=== PATIENT | female | born 1975 | race Caucasian/White ===

== ENCOUNTER 2019-07-27 02:57 | Emergency (ER) | payer OTHER ==
[2019-07-27] MEDS ORDERED: Sodium Chloride 0.9% 1000 ML 1,000 ML IV STA (03:28)
[2019-07-27] MEDS ORDERED: Inapsine 5 MG/2 ML IV ONE (03:28)
[2019-07-27] MEDS ORDERED: BENADRYL 50 MG/ML IV ONE (03:28)
[2019-07-27] MEDS ORDERED: Inapsine 5 MG/2 ML ONE (03:32)
[2019-07-27] MEDS ORDERED: Sodium Chloride 0.9% 1000 ML 1,000 ML ONE (03:33)
[2019-07-27] MEDS ORDERED: BENADRYL 50 MG/ML ONE (03:33)
--- NOTE | 2019-07-27 03:39 | ERPHSYRPT ---
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 I got a steroid shot from my doctor today and it helped for a little bit. Tonight it started hurting again and won't go away." Triage Nursing Assessment: Pt presented to the ED alert et oriented GCS - 15 answering questions appropriately. Pt ambulated to the room without complications. Pt reported an ongoing headache over the past two weeks that she saw her PCP for who gave her a steroid injection. Pt reported no relief from the headache. Pt reported mild dizziness. Pt denied visual/auditory disturbances. Pt denied nasuea/vomiting. Head normocephalic. Pupils 3mm reactive to light without noted nystagmus. Oral mucosa pink/moist. Neck supple non-tender without noted lymphadenopathy. Symmetrical chest expansion. lungs clear with adequate airflow. Heart tones tachycardic/clear. Radial pulse strong billateral. Abdomen soft non-tender. No noted neurological deficits. Pt denied history of migraines or seizures. Pt reported taking 1500mg of tylenol prior to arrival. Pt denied any recent trauma. Pt did report recently finishing a z-pack prescribed by her PCP. Physician History: Patient is here for headache frontal. Patient states that she has had a headach e intermittent for 2 weeks. It is not worse or better throughout the day. She states that she has no falls or trauma. No fever or chills. No signs or symptoms of meningitis. Patient states that she has seen her nurse practitioner twice for this. She has received that steroid shot, Toradol shot, and Z-Percy. She is already been on a Z-Percy for sinusitis recently. She recently had an ablation done uterus. She has no fever or chills. No signs or symptoms of cavernous sinus thrombosis. Location: frontal headache Quality: dull, aching Radiation: none Severity: moderate Duration: 2 weeks Timing: intermittent Modifying factors/associated signs and symptoms: Treated as sinusitis already. States that she still has some frontal drainage, signs and symptoms of allergies. She has get allergy shots as well. Allergies/Adverse Reactions: codeine Allergy (Severe, Verified 07/27/19 03:03) fentanyl Allergy (Severe, Verified 07/27/19 03:03) Home Medications: Hydrocodone/APAP 5-325 Tab^^^ [Levasy 5-325 Tablet^^^] 1 tab PO Q4H 07/27/19 [History] Hx Tetanus, Diphtheria Vaccination/Date Given: Yes Hx Influenza Vaccination/Date Given: Yes Travel Risk - International Travel Have you traveled outside of the country in past 3 weeks: No - Coronavirus Screening Are you exhibiting any of the following symptoms?: No Close contact with a COVID-19 positive Pt in past 14-21 Days: No - Review of Systems Constitutional: No Fever, No Chills Eyes: No Symptoms Ears, Nose, & Throat: No Symptoms Respiratory: No Cough, No Dyspnea Cardiac: No Chest Pain, No Edema, No Syncope Abdominal/Gastrointestinal: No Abdominal Pain, No Nausea, No Vomiting, No Diarrhea Genitourinary Symptoms: No Dysuria Musculoskeletal: No Back Pain, No Neck Pain Skin: No Rash Neurological: Headache, No Dizziness, No Focal Weakness, No Sensory Changes Psychological: No Symptoms Endocrine: No Symptoms All Other Systems: Reviewed and Negative - Past Medical History Pertinent Past Medical History: Yes Cardiac History: High Cholesterol, Hypertension Endocrine Medical History: Hypothyroidism GI Medical History: GERD - Past Surgical History Past Surgical History: Yes Other Surgical History: tubal ablasion - Social History Smoking Status: Never smoker Exposure to second hand smoke: No Drug Use: none Patient Lives Alone: Yes - Female History Hx Now: No - Nursing Vital Signs Nursing Vital Signs: Initial Vital Signs Temperature 98.3 F 07/27/19 02:57 Pulse Rate 105 H 07/27/19 02:57 Respiratory Rate 16 07/27/19 02:57 Blood Pressure 139/93 07/27/19 02:57 O2 Sat by Pulse Oximetry 100 07/27/19 02:57 Pain Scale Pain Intensity 8 - Physical Exam General Appearance: no apparent distress, alert Eye Exam: eyes nml inspection, other (Patient is blind in her right eye. Therefore she has some issues with medial gaze of the right eye. However this is not new.) Ears, Nose, Throat Exam: normal ENT inspection, TMs normal, pharynx normal, moist mucous membranes Neck Exam: normal inspection, non-tender, supple, full range of motion Respiratory Exam: normal breath sounds, lungs clear, No respiratory distress Cardiovascular Exam: regular rate/rhythm, normal heart sounds, normal peripheral pulses Gastrointestinal/Abdomen Exam: soft, normal bowel sounds, No tenderness, No mass Back Exam: normal inspection, normal range of motion, No CVA tenderness, No vertebral tenderness Extremity Exam: normal inspection, normal range of motion, pelvis stable Neurologic Exam: alert, oriented x 3, cooperative, normal mood/affect, nml cerebellar function, nml station & gait, sensation nml, No motor deficits Skin Exam: normal color, warm, dry, No rash Lymphatic Exam: No adenopathy SpO2 Interpretation: normal SpO2: 100 Comments: 07/27/19 03:36 No trismus, able to fully extend neck, normal range of motion of neck without pain. Uvula is midline, no swelling of the mouth, noraml oropharynx. No exudate, no signs of meningitis, no floor of mouth swelling, no hot potato voice on exam. No buccal swelling, no gum bleeding, no signs of tooth abscess/infection. No obvious deformity, sensation intact, 2+ capillary refill, 2 point tactile discrimination intact. 5 out of 5 strength. Full range of motion without pain. Compartments are soft, nontender. Overlying skin shows no tenting, bruising, ecchymosis. Motor: There is no pronator drift of out-stretched arms. Muscle bulk and tone are normal. Strength is full bilaterally. Reflexes: Reflexes are 2+ and symmetric at the biceps, triceps, knees, and ankles. Plantar responses are flexor. Sensory: Light touch sense are intact in bilateral upper and lower extremities. There is no sign of neglect. Coordination: Rapid alternating movements are intact. There is no dysmetria on [id number] and [id number]. There are no abnormal or extraneous movements. Romberg is absent. Gait/Stance: Posture is normal. Gait is steady with normal steps, base, arm swing, and turning. Heel and toe walking are normal. Tandem gait is normal. Ordered Tests: Active Orders 24 hr Category Date Time Status IV Insertion STAT Care 07/27/19 03:28 Active ACETAMINOPHEN Stat Lab 07/27/19 04:00 Completed CBC W DIFF Stat Lab 07/27/19 04:00 Completed CMP Stat Lab 07/27/19 04:00 Completed Manual Differential NC Stat Lab 07/27/19 04:00 Completed Medication Summary Discontinued Medications Generic Name Dose Route Start Last Admin Trade Name Freq PRN Reason Stop Dose Admin Diphenhydramine HCl 25 mg 07/27/19 03:28 07/27/19 03:34 Benadryl 50 Mg/Ml IV 07/27/19 03:29 25 mg STAT ONE Administration Diphenhydramine HCl Confirm 07/27/19 03:33 Benadryl 50 Mg/Ml Administered 07/27/19 03:34 Dose 50 mg .ROUTE .STK-MED ONE Droperidol 1.25 mg 07/27/19 03:28 07/27/19 03:39 Inapsine 5 Mg/2 Ml IV 07/27/19 03:29 1.25 mg STAT ONE Administration Droperidol Confirm 07/27/19 03:32 Inapsine 5 Mg/2 Ml Administered 07/27/19 03:33 Dose 5 mg .ROUTE .STK-MED ONE Sodium Chloride 1,000 mls @ 999 mls/hr 07/27/19 03:28 07/27/19 03:35 Sodium Chloride 0.9% 1000 Ml IV 07/27/19 04:28 999 mls/hr .Q1H1M STA Administration Sodium Chloride Confirm 07/27/19 03:33 Sodium Chloride 0.9% 1000 Ml Administered 07/27/19 03:34 Dose 1,000 mls @ ud .ROUTE .STK-MED ONE Lab/Rad Data: Laboratory Result Diagrams 07/27/19 04:00 07/27/19 04:00 Laboratory Results 07/27/19 07/27/19 07/27/19 Range/Units 04:00 04:00 04:00 WBC 14.6 H (4.0-10.5) K/mm3 RBC 3.71 L (4.1-5.4) M/mm3 Hgb 9.8 L (12.0-16.0) gm/dl Hct 30.7 L (35-47) % MCV 82.7 (78-100) fl MCH 26.4 (26-32) pg MCHC 31.9 L (32-36) g/dl RDW 13.4 (11.5-14.0) % Plt Count 476 H (150-450) K/mm3 MPV 8.4 (7.5-11.0) fl Sodium 138 (137-145) mmol/L Potassium 3.5 (3.5-5.1) mmol/L Chloride 106 (98-107) mmol/L Carbon Dioxide 25 (22-30) mmol/L Anion Gap 10.5 (5-15) MEQ/L BUN 8 (7-17) mg/dL Creatinine 0.50 L (0.52-1.04) mg/dL Estimated GFR > 60.0 ML/MIN Glucose 159 H (74-106) mg/dL Calcium 8.4 (8.4-10.2) mg/dL Total Bilirubin 0.20 (0.2-1.3) mg/dL AST 24 (14-36) U/L ALT 28 (0-35) U/L Alkaline Phosphatase 105 (38-126) U/L Serum Total Protein 6.2 L (6.3-8.2) g/dL Albumin 3.0 L (3.5-5.0) g/dL Acetaminophen < 10 L (10-30) ug/ml - Progress Progress: improved Progress Note: 07/27/19 03:37 Patient is here with a frontal headache, sinusitis-like symptoms. She has had several treatment regimes are ready. I did discuss the risks and benefits of a head CT tonight. Although, I do think this would be low yield given her normal physical exam and history. Overall, I do not believe that she has infection as a reason for her headache. Either meningitis, encephalitis, cavernous sinus thrombosis are very low on my differential diagnosis. Using shared decision making, we made the decision to get basic labs, check a Tylenol level given her excessive Tylenol use. We will also give fluids, migraine cocktail here. If patient has not improved, I will obtain a head CT. However, I do believe patient would most benefit from outpatient MRI based on her signs and symptoms. She will need a neurological reexam in 24 to 48 hours no matter what. We will give migraine cocktail, reassess. 07/27/19 04:46 Patient feeling improved. Labs unremarkable. Neurological reexam was negative. We will have him follow up with PCP for reexam. Will need to return here for any new or changing symptoms. Counseled pt/family regarding: lab results, diagnosis, need for follow-up - Departure Departure Disposition: Home Clinical Impression: Headache Condition: Stable Critical Care Time: No Referrals: CHARLES CHO MD [Primary Care Provider] - Instructions: Headache, Adult (DC)
[2019-07-27 04:07] LABS: Hematocrit 30.7 % (35-47); Hemoglobin 9.8 gm/dl (12.0-16.0); Mean Cell Volume 82.7 fl (78-100); Mean Corpuscular Hemoglobin 26.4 pg (26-32); Mean Corpuscular Hgb Concent. 31.9 g/dl (32-36); Mean Platelet Volume 8.4 fl (7.5-11.0); Platelet Count 476 K/mm3 (150-450); Red Blood Count 3.71 M/mm3 (4.1-5.4); Red Cell Distribution Width 13.4 % (11.5-14.0); White Blood Count 14.6 K/mm3 (4.0-10.5)
[2019-07-27 04:27] LABS: ALKALINE PHOSPHATASE 105 U/L (38-126); ANION GAP 10.5 MEQ/L (5-15); BLOOD UREA NITROGEN 8 mg/dL (7-17); CHLORIDE 106 mmol/L (98-107); Calcium 8.4 mg/dL (8.4-10.2); Carbon Dioxide 25 mmol/L (22-30); Glucose 159 mg/dL (74-106); Potassium 3.5 mmol/L (3.5-5.1); SGOT/AST 24 U/L (14-36); SGPT/ALT 28 U/L (0-35); SODIUM 138 mmol/L (137-145); Total Protein 6.2 g/dL (6.3-8.2)
[2019-07-27 05:05] VITALS: BP 142/68; PULSE 78; O2SAT 98
[2019-07-27 05:05] LABS: Eosinophil 2 % (0.00-3.0); Lymphocytes 17 % (24-44); Monocyte 6 % (0.0-12.0); Neutrophils 75 % (36.0-66.0); Platelet Estimate NORMAL (NORMAL); Total Cells Counted 100
== END 2019-07-27 05:02 | disposition home or self-care (01) ==
LOC: ED 02:57
DX: R51 Headache (principal)
CPT/HCPCS: 36000; 36415; 80053; 85025; 96360; 96374; 96375; 99284; G0481; 80307; J1200

== ENCOUNTER 2022-09-01 04:55 | Emergency (ER) | payer OTHER, MEDICARE ==
[2022-09-01 05:06] VITALS: TEMP 97.6
[2022-09-01] MEDS ORDERED: BABY ASPIRIN 81 MG CHEW PO ONE (05:25)
[2022-09-01 05:34] LABS: Absolute Neutrophil Ct (ANC) 6.08 x10^3/uL (1.4-6.9); BASOPHIL % 0.4 % (0.0-0.4); Basophil (Absolute #) 0.03 x10^3/uL (0-0.4); Eosinophil % 1.2 % (0.00-5.0); Eosinophil (Absolute #) 0.09 x10^3/uL (0-0.5); Hematocrit 38.2 % (35-47); Hemoglobin 12.2 g/dL (12.0-16.0); IMMATURE GRAN # 0.06 x10^3u/L (0.00-0.03); IMMATURE GRAN % 0.8 % (0.00-0.4); Lymphocyte (Absolute #) 0.84 x10^3/uL (1.0-4.6); Mean Cell Volume 81.3 fL (78-100); Mean Corpuscular Hgb Concent. 31.9 g/dL (32-36); Mean Platelet Volume 9.6 fL (7.5-11.0); Monocyte (Absolute #) 0.56 x10^3/uL (0.0-1.3); Monocytes % 7.3 % (0.0-12.0); Neutrophil % 79.3 % (36.0-66.0); Platelet Count 298 x10^3/uL (150-450); Red Cell Distribution Width 14.6 % (11.5-14.0); White Blood Count 7.7 x10^3/uL (4.0-10.5)
[2022-09-01] MEDS ORDERED: GI COCKTAIL 45 ML (Maalox/Lidocaine) PO ONE (05:36)
[2022-09-01] MEDS ORDERED: XYLOCAINE VISCOUS 2% 15 ML CUP ONE (05:38)
[2022-09-01] MEDS ORDERED: MAALOX ES 30 ML UNIT DOSE ONE (05:38)
--- NOTE | 2022-09-01 05:42 | ERPHSYRPT ---
<ALBALELO Suahil - Last Filed: 09/01/22 06:36> - History of Present Illness Time Seen by Provider: 09/01/22 05:10 Historian: patient, family Exam Limitations: no limitations Patient Subjective Stated Complaint: pt states she way laying in bed asleep at approx 0300 and she was woken up midsternal chest pain that radiates through to her back. denies n/v, sob, difficulty breathing, lightheadedness, dizziness, difficulty with urination or bowel elimination. she took tums and an apple cide vinegar combination that didn't alleviate the symptoms. she reports that she has had this type of pain about every 6 months for the last 2 yrs but hasn't ever sought treatment/ evaluation. she reports that it usually just goes away in an hour or two. she states she "might have indigestion". reports that the pain to chest is consistent with her pain with indigestion in the past but it doesn't normally radiate to her back. denies radiation to neck, face, arms, etc. Triage Nursing Assessment: pt ambulated into room 5 independently with slow steady gait. pt is alert and oriented times three, able to speak in complete sentences, able to move all extremities, and with resp even and unlabored. heart sound present, regular, and normal. bilat radial and pedal pulses palpable, strong, and equal. anterior lung sounds clear throughout. no edema noted. Physician History: This is a 47-year-old white female patient who experienced substernal, central chest pain "like indigestion" that radiated through to her back. She has had these episodes in the past intermittently. She says approximate every 6 months for the last 2 years she has had these episodes. Typically the symptoms resolve in 1 to 2 hours. Last night her and her family ate chicken, mashed potatoes and macaroni and cheese. No other individuals had similar symptoms. Patient still has her gallbladder in place. Patient does have a history of gastroesophageal reflux disease, hypothyroidism, hyperlipidemia, hypertension and Crohn's disease. Patient denies cough. She denies fever. She has no shortness of breath. She has no abdominal pain. She has no nausea vomiting or diarrhea. Patient has never been diagnosed with coronary artery disease. 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 Patient took 2 Tums at 3:30 in the morning followed by a combination of baking soda and apple cider at 4 AM this morning and the symptoms did not resolve. Timing/Duration: today Quality: burning (Like indigestion) Location: substernal, central Chest Pain Radiation: back Severity of Pain-Max: mild (To moderate) Severity of Pain-Current: mild (To moderate) Modifying Factors: Improves With: nothing Associated Symptoms: denies symptoms Prior Chest Pain/Cardiac Workup: no prior chest pain, no prior cardiac workup Nitro Today/Relief: no nitro taken today Aspirin Treatment Today: no aspirin today Allergies/Adverse Reactions: codeine Allergy (Severe, Verified 09/01/22 04:57) fentanyl Allergy (Severe, Verified 09/01/22 04:57) escitalopram [From Lexapro] Allergy (Intermediate, Verified 09/01/22 04:57) Itching Home Medications: Adalimumab [Humira] 40 mg SQ UD 09/01/22 [History] Cetirizine HCl [Zyrtec] 10 mg PO DAILY 09/01/22 [History] Fenofibrate Nanocrystallized [Fenofibrate] 145 mg PO DAILY 09/01/22 [History] Fluoxetine HCl [Prozac] 40 mg PO DAILY 09/01/22 [History] Levothyroxine Sodium 75 Mcg [Synthroid 75 Mcg] 75 mcg PO DAILY 09/01/22 [History] Losartan Potassium 50 mg [Cozaar 50 MG] 50 mg PO DAILY 09/01/22 [History] PANTOPRAZOLE 40 mg Tablet [Protonix 40MG Tablet] 40 mg PO DAILY 09/01/22 [History] Solifenacin Succinate [Vesicare] 10 mg PO DAILY 09/01/22 [History] Hx Tetanus, Diphtheria Vaccination/Date Given: No (unsure) Hx Influenza Vaccination/Date Given: No Hx Pneumococcal Vaccination/Date Given: No Immunizations Up to Date: No Travel Risk - International Travel Have you traveled outside of the country in past 3 weeks: No - Coronavirus Screening Are you exhibiting any of the following symptoms?: No - Vaccine Status Have you recieved a Covid-19 vaccination: No 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 - Vaccination Dates Date of 2cond Vaccination (if applicable): unknown - Review of Systems Constitutional: No Symptoms Eyes: No Symptoms Ears, Nose, & Throat: No Symptoms Respiratory: No Symptoms Cardiac: Chest Pain (Like indigestion) Genitourinary Symptoms: No Symptoms Musculoskeletal: No Symptoms Skin: No Symptoms Neurological: No Symptoms Psychological: No Symptoms Endocrine: No Symptoms Hematologic/Lymphatic: No Symptoms Immunological/Allergic: No Symptoms All Other Systems: Reviewed and Negative - Past Medical History Pertinent Past Medical History: Yes Neurological History: No Pertinent History ENT History: No Pertinent History Cardiac History: High Cholesterol, Hypertension Respiratory History: Asthma Endocrine Medical History: Hypothyroidism Musculoskeletal History: No Pertinent History GI Medical History: Crohns Disease, GERD History: No Pertinent History Psycho-Social History: No Pertinent History Female Reproductive Disorders: No Pertinent History Other Medical History: EYE SURGERIES, BORN A PREMIE. - Past Surgical History Past Surgical History: Yes Neuro Surgical History: No Pertinent History Cardiac: No Pertinent History Respiratory: No Pertinent History Gastrointestinal: No Pertinent History Genitourinary: No Pertinent History Musculoskeletal: No Pertinent History Female Surgical History: Other Other Surgical History: tubal ablasion - Social History Smoking Status: Never smoker Exposure to second hand smoke: No Drug Use: none Patient Lives Alone: No - Female History Hx Last Menstrual Period: ablation, no periods Hx Now: No - Physical Exam General Appearance: no apparent distress, alert, anxiety Eye Exam: PERRL/EOMI, eyes nml inspection Ears, Nose, Throat Exam: normal ENT inspection, moist mucous membranes Neck Exam: normal inspection, non-tender, supple, full range of motion Respiratory Exam: normal breath sounds, chest tenderness (Like indigestion), lungs clear, airway intact, No respiratory distress Cardiovascular Exam: regular rate/rhythm, normal heart sounds, normal peripheral pulses Gastrointestinal/Abdomen Exam: soft, normal bowel sounds, No tenderness Pelvic Exam: not done Rectal Exam: not done Back Exam: normal inspection, normal range of motion, No CVA tenderness, No vertebral tenderness Extremity Exam: normal inspection, normal range of motion, pelvis stable Neurologic Exam: alert, oriented x 3, cooperative, 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 No change in today's twelve-lead EKG from twelve-lead EKG dated 02/01/2019) - Progress Progress: improved Air Movement: good Progress Note: 09/01/22 06:36 Chest x-ray was interpreted by me. There is no evidence of any acute cardiopulmonary process on this chest x-ray. This patient's medical issue is 1 of moderate complexity. Level of complexity and the work-up performed is based on review of the patient's past medical history, review of the patient's medication list, review of the patient's drug allergy list, history of present illness and physical findings on examination. The work-up in this patient includes a twelve-lead EKG, D-dimer level, troponin level, CBC, CMP and chest x-ray. I reviewed the results of the studies. With t he exception of an elevated D-dimer the remainder of the work-up results do not show any acute, emergent findings. I am ordering a CT of the chest with contrast to evaluate for pulmonary embolus or other acute cardiopulmonary processes. The patient's symptoms have completely resolved after GI cocktail ingestion. Likely, her pain is not cardiac in origin but may be gastrointestinal including the possibility of esophagitis, gastroesophageal reflux disease, gastritis, ulcer disease, gallbladder disease. The CT scan of the chest with contrast has been ordered and has not been performed yet. Patient care will be transferred to Dr. Higuera at shift change. This was discussed with the patient and her spouse. He will follow-up with the test results and make final disposition. Blood Culture(s) Obtained: No Antibiotics given: No Counseled pt/family regarding: lab results, diagnosis, need for follow-up, rad results Medical Desision Making - Independent Historian Additional History obtained from: Spouse - Diagnostic Testing Diagnostic test were ordered, analyzed, and reviewed by me: Yes Radiological Interpretation: Interpreted by me - Risk of complications Low Risk: Low risk of morbidity from additional dx testing or treatment - Departure Departure Disposition: Home Clinical Impression: Atypical chest pain Condition: Stable Critical Care Time: No Referrals: YANELY RAJAN MD [Primary Care Provider] - Follow up/PCP as directed SARIAH KULKARNI [CONSULTING PHYSICIAN] - Follow up/PCP as directed (Call today for appointment) Instructions: Angina (DC), Chest Pain (DC) Additional Instructions: Avoid fatty greasy spicy foods. Take your medication as prescribed. Call your primary care provider today to make arrangements for follow-up appointment for further management. <VLAD HIGUERA - Last Filed: 09/01/22 11:14> - Nursing Vital Signs Nursing Vital Signs: Initial Vital Signs Temperature 97.6 F 09/01/22 04:56 Pulse Rate 90 09/01/22 04:56 Respiratory Rate 18 09/01/22 04:56 Blood Pressure 121/76 09/01/22 04:56 O2 Sat by Pulse Oximetry 99 09/01/22 04:56 Pain Scale Pain Intensity 0 Ordered Tests: Active Orders 24 hr Category Date Time Status Director Of Curriculum And Instruction STAT Care 09/01/22 05:25 Completed EKG-ER Only STAT Care 09/01/22 05:25 Completed IV Insertion STAT Care 09/01/22 05:25 Completed Pulse Oximetry (ED) STAT Care 09/01/22 05:25 Completed CHEST 1 VIEW (PORTABLE) Stat Exams 09/01/22 05:36 Completed CHEST WITH CONTRAST [CT] Stat Exams 09/01/22 06:58 Completed CBC W DIFF Stat Lab 09/01/22 05:25 Completed CMP Stat Lab 09/01/22 05:34 Completed D-DIMER QUANTITATIVE Stat Lab 09/01/22 05:34 Completed T4 (Thyroxine) Stat Lab 09/01/22 05:34 Completed TROPONIN Q4H Lab 09/01/22 05:34 Completed TROPONIN Q4H Lab 09/01/22 08:22 Completed TSH, 3RD Generation Stat Lab 09/01/22 05:34 Completed Medication Summary Discontinued Medications Generic Name Dose Route Start Last Admin Trade Name Humble PRN Reason Stop Dose Admin Al Hydrox/Mg Hydrox/Simethicone Confirm 09/01/22 05:38 Mag Hydrox/Al Hydrox/Simeth 30 Ml Udcup Administered 09/01/22 05:39 Dose 30 ml .ROUTE .STK-MED ONE Aspirin 324 mg 09/01/22 05:25 09/01/22 05:18 Aspirin 81 Mg Tab.Chew PO 09/01/22 05:26 324 mg STAT ONE Administration Sodium Chloride Confirm 09/01/22 06:28 Sodium Chloride 0.9% 500 Ml Administered 09/01/22 06:29 Dose 500 mls @ ud IV .STK-MED ONE Sodium Chloride 500 mls @ 500 mls/hr 09/01/22 06:30 09/01/22 08:20 Sodium Chloride 0.9% 500 Ml IV 09/01/22 07:29 Infused .Q1H ONE Infusion Lidocaine HCl Confirm 09/01/22 05:38 Lidocaine Hcl 2% Viscous 15 Ml Udcup Administered 09/01/22 05:39 Dose 15 ml .ROUTE .STK-MED ONE Magnesium Hydroxide 45 ml 09/01/22 05:36 09/01/22 05:39 Mag Hydrx/Alum Hyd/Simeth/Lido 45 Ml Bottle PO 09/01/22 05:37 45 ml STAT ONE Administration Ondansetron HCl 4 mg 09/01/22 06:49 09/01/22 06:50 Ondansetron Hcl 4 Mg/2 Ml Vial IV 09/01/22 06:50 4 mg STAT ONE Administration Ondansetron HCl Confirm 09/01/22 06:49 Ondansetron Hcl 4 Mg/2 Ml Vial Administered 09/01/22 06:50 Dose 4 mg .ROUTE .STK-MED ONE Lab/Rad Data: Laboratory Result Diagrams 09/01/22 05:25 09/01/22 05:34 Laboratory Results 09/01/22 09/01/22 09/01/22 Range/Units 08:22 05:34 05:34 WBC (4.0-10.5) x10^3/uL RBC (4.1-5.4) x10^6/uL Hgb (12.0-16.0) g/dL Hct (35-47) % MCV (78-100) fL MCH (26-32) pg MCHC (32-36) g/dL RDW (11.5-14.0) % Plt Count (150-450) x10^3/uL MPV (7.5-11.0) fL Gran % (36.0-66.0) % Immature Gran % (Auto) (0.00-0.4) % Nucleat RBC Rel Count (0.00-0.1) % Eos # (Auto) (0-0.5) x10^3/uL Immature Gran # (Auto) (0.00-0.03) x10^3u/L Absolute Lymphs (auto) (1.0-4.6) x10^3/uL Absolute Monos (auto) (0.0-1.3) x10^3/uL Absolute Nucleated RBC (0.00-0.01) x10^3u/L Lymphocytes % (24.0-44.0) % Monocytes % (0.0-12.0) % Eosinophils % (0.00-5.0) % Basophils % (0.0-0.4) % Absolute Granulocytes (1.4-6.9) x10^3/uL Basophils # (0-0.4) x10^3/uL D-Dimer 1.08 H* (0.0-0.50) mg/L Sodium (137-145) mmol/L Potassium (3.5-5.1) mmol/L Chloride (98-107) mmol/L Carbon Dioxide (22-30) mmol/L Anion Gap (5-15) MEQ/L BUN (7-17) mg/dL Creatinine (0.52-1.04) mg/dL Estimated GFR ML/MIN Glucose (74-106) mg/dL Calcium (8.4-10.2) mg/dL Total Bilirubin (0.2-1.3) mg/dL AST (14-36) U/L ALT (0-35) U/L Alkaline Phosphatase (38-126) U/L Troponin I < 0.012 < 0.012 (0.000-0.034) ng/mL Serum Total Protein (6.3-8.2) g/dL Albumin (3.5-5.0) g/dL Thyroxine (T4) (5.53-10.96) ug/dL TSH 3rd Generation (0.47-4.68) mIU/L 09/01/22 09/01/22 Range/Units 05:34 05:25 WBC 7.7 (4.0-10.5) x10^3/uL RBC 4.70 (4.1-5.4) x10^6/uL Hgb 12.2 (12.0-16.0) g/dL Hct 38.2 (35-47) % MCV 81.3 (78-100) fL MCH 26.0 (26-32) pg MCHC 31.9 L (32-36) g/dL RDW 14.6 H (11.5-14.0) % Plt Count 298 (150-450) x10^3/uL MPV 9.6 (7.5-11.0) fL Gran % 79.3 H (36.0-66.0) % Immature Gran % (Auto) 0.8 H (0.00-0.4) % Nucleat RBC Rel Count 0.0 (0.00-0.1) % Eos # (Auto) 0.09 (0-0.5) x10^3/uL Immature Gran # (Auto) 0.06 H (0.00-0.03) x10^3u/L Absolute Lymphs (auto) 0.84 L (1.0-4.6) x10^3/uL Absolute Monos (auto) 0.56 (0.0-1.3) x10^3/uL Absolute Nucleated RBC 0.00 (0.00-0.01) x10^3u/L Lymphocytes % 11.0 L (24.0-44.0) % Monocytes % 7.3 (0.0-12.0) % Eosinophils % 1.2 (0.00-5.0) % Basophils % 0.4 (0.0-0.4) % Absolute Granulocytes 6.08 (1.4-6.9) x10^3/uL Basophils # 0.03 (0-0.4) x10^3/uL D-Dimer (0.0-0.50) mg/L Sodium 135 L (137-145) mmol/L Potassium 4.0 (3.5-5.1) mmol/L Chloride 104 (98-107) mmol/L Carbon Dioxide 21 L (22-30) mmol/L Anion Gap 14.5 (5-15) MEQ/L BUN 10 (7-17) mg/dL Creatinine 0.68 (0.52-1.04) mg/dL Estimated GFR > 60.0 ML/MIN Glucose 147 H (74-106) mg/dL Calcium 8.5 (8.4-10.2) mg/dL Total Bilirubin 0.40 (0.2-1.3) mg/dL AST 23 (14-36) U/L ALT 18 (0-35) U/L Alkaline Phosphatase 62 (38-126) U/L Troponin I (0.000-0.034) ng/mL Serum Total Protein 7.3 (6.3-8.2) g/dL Albumin 3.9 (3.5-5.0) g/dL Thyroxine (T4) 9.49 (5.53-10.96) ug/dL TSH 3rd Generation 1.400 (0.47-4.68) mIU/L - Progress Progress Note: 09/01/22 09:12 patient is checked out to me at shift change from Dr. Carvajal with pending CTA chest. Patient presented with substernal pain which improved with symptomatic treatment. During my evaluation patient is chest pain-free. I have reviewed the EKG which did not show any ST elevations. I have repeated second troponin and is negative as well. CTA chest is negative for PE, pneumonia, pneumothorax or any other acute intrathoracic findings. I believe patient's has pain most probably secondary to GERD esophagitis. Recommended continue with Protonix. Since this has been going off and on for quite some time the patient has occasional chest pain, recommended outpatient cardiology follow-up. She has a low heart score, do not think needs further evaluation in the emergency room and can follow-up outpatient. Discussed signs symptoms of worsening needing return to ER which she seems understanding. Stable for discharge. Medical Desision Making - Diagnostic Testing Radiological Interpretation: Reviewed by me - Departure Departure Disposition: Home
[2022-09-01 06:18] LABS: ALBUMIN 3.9 g/dL (3.5-5.0); ALKALINE PHOSPHATASE 62 U/L (38-126); ANION GAP 14.5 MEQ/L (5-15); BLOOD UREA NITROGEN 10 mg/dL (7-17); CHLORIDE 104 mmol/L (98-107); Calcium 8.5 mg/dL (8.4-10.2); Carbon Dioxide 21 mmol/L (22-30); Creatinine 1 0.68 mg/dL (0.52-1.04); EST GLOMERULAR FILTRATION RATE > 60.0 ML/MIN; Glucose 147 mg/dL (74-106); SGOT/AST 23 U/L (14-36); SGPT/ALT 18 U/L (0-35); SODIUM 135 mmol/L (137-145); T4 (Thyroxine) 9.49 ug/dL (5.53-10.96); Total Protein 7.3 g/dL (6.3-8.2)
[2022-09-01] MEDS ORDERED: Sodium Chloride 0.9% 500 ML 500 ML IV ONE ×2 (06:28→06:30)
[2022-09-01] MEDS ORDERED: Zofran 4 MG/2 ML VIAL IV ONE (06:49)
[2022-09-01] MEDS ORDERED: Zofran 4 MG/2 ML VIAL ONE (06:49)
[2022-09-01 08:13] VITALS: RESP 15
--- NOTE | 2022-09-01 08:45 | XRAY ---
Indication: Chest pain. Comparison: February 01, 2019 Portable chest again demonstrates normal heart, lungs, and bony thorax.
--- NOTE | 2022-09-01 08:45 | XRAY ---
Indication: Chest pain. Elevated d-dimer. Pulmonary embolus. Multiple contiguous axial images obtained through the chest using 80 cc Isovue 370 contrast and PE protocol. Comparison: None Good opacification of the pulmonary arteries including lobar and segmental branches. No pulmonary embolus. Heart is not enlarged. Aorta is normal in course and caliber. No pathologic mediastinal/hilar lymphadenopathy. Lungs demonstrate minimal bilateral dependent atelectasis. No suspicious pulmonary mass, infiltrate, effusion, or pneumothorax. Bony thorax intact. Limited upper abdomen demonstrate fatty liver. Impression: Negative pulmonary embolus. No acute cardiopulmonary abnormalities. Incidental fatty liver.
[2022-09-01 09:04] VITALS: BP 100/66; PULSE 81; O2SAT 96
== END 2022-09-01 09:13 | disposition home or self-care (01) ==
LOC: ED 04:55
DX: R07.89 Other chest pain (principal); E78.5 Hyperlipidemia, unspecified; I10 Essential (primary) hypertension; Z79.899 Other long term (current) drug therapy
CPT/HCPCS: 36000; 36415; 71045; 71260; 80053; 84436; 84443; 84484; 85025; 85379; 93005; 93041; 94760; 96374; 99284; J2405; A9270-GY

== ENCOUNTER 2024-03-13 20:53 | Emergency (ER) | payer OTHER, MEDICARE ==
[2024-03-13 21:31] VITALS: RESP 18; TEMP 98.2
[2024-03-13] MEDS ORDERED: ZOFRAN ODT 4 MG ONE ×2 (21:48→21:52)
[2024-03-13] MEDS: ZOFRAN ODT 4 MG PO ONE (21:49)
[2024-03-13 21:56] LABS: Appearance Clear (Clear); Bilirubin Negative (Negative); Blood NHT (Negative); Glucose, Urine Negative (Negative); Ketones Trace (Negative); Leukocyte Esterase Negative (Negative); Nitrite Negative (Negative); Protein,Urine Dip 30 (Negative); Specific Gravity >=1.030 (1.005-1.030)
--- NOTE | 2024-03-13 21:56 | ERPHSYRPT ---
- History of Present Illness Time Seen by Provider: 03/13/24 21:57 Source: patient Exam Limitations: no limitations Patient Subjective Stated Complaint: c/o abdominal pain and vomiting Triage Nursing Assessment: patient rboguth into ED by with c/o abdominal pain and vomiting. patient states that she vomited 8-10 times prior to arrival, patient denies diarrhea, history of Crohn's disease, last BM was today, last oral intake around 1300, bowel sounds present in all 4 quads, tender with palpation, skin w/n/d, afebrile, gait steady, slightly hypertensive, patient doesn't appear to be in any distress at this time. Physician History: 48-year-old female presents to emergency department with her for evalu ation of nausea vomiting and generalized abdominal pain. Patient states she vomited 8 times prior to arrival. Patient states she had a CT abdomen pelvis and laboratory workup done at [facility] this morning at around 11:00. After ingesting the oral contrast patient symptoms began. Patient is concerned because she has a history of Crohn's. Patient does not know whether or not her symptoms are related to a viral infection to her Crohn's flareup. Patient is declining another CAT scan today because she already had 1 although if her symptoms developed after the CAT scan was performed the CAT scan may not show any abnormalities. Patient is aware of this however states she does not want to repeat a CAT scan due to "too much radiation". Patient is currently a breast cancer patient. No associated fever. Patient resting comfortably. She voices no other complaints or concerns at this time. Portions of this note were created with voice recognition technology. There may be grammatical, spelling, punctuation or sound alike errors Timing/Duration: today Severity: moderate Modifying Factors: Improves With: nothing Associated Symptoms: denies symptoms Allergies/Adverse Reactions: codeine Allergy (Severe, Verified 03/13/24 21:31) fentanyl Allergy (Severe, Verified 03/13/24 21:31) escitalopram [From Lexapro] Allergy (Intermediate, Verified 03/13/24 21:31) Itching Home Medications: Cetirizine HCl [Zyrtec] 10 mg PO DAILY 09/01/22 [History] Fenofibrate Nanocrystallized [Fenofibrate] 145 mg PO DAILY 09/01/22 [History] Levothyroxine Sodium 75 Mcg [Synthroid 75 Mcg] 75 mcg PO DAILY 09/01/22 [History] Losartan Potassium 50 mg [Cozaar 50 MG] 50 mg PO DAILY 09/01/22 [History] PANTOPRAZOLE 40 mg Tablet [Protonix 40MG Tablet] 40 mg PO DAILY 09/01/22 [History] Solifenacin Succinate [Vesicare] 10 mg PO DAILY 09/01/22 [History] Duloxetine HCl [Cymbalta] 60 mg PO DAILY 03/13/24 [History] Ustekinumab [Stelara] 45 mg SQ UD 03/13/24 [History] Hx Tetanus, Diphtheria Vaccination/Date Given: No Hx Influenza Vaccination/Date Given: No Hx Pneumococcal Vaccination/Date Given: No Travel Risk - International Travel Have you traveled outside of the country in past 3 weeks: No - Emerging Infectious Disease Are you exhibiting symptoms associated with any current EIDs: Yes Symptoms: Abdominal Pain, Vomitting - Review of Systems Constitutional: No Symptoms, No Fever, No Chills Eyes: No Symptoms Ears, Nose, & Throat: No Symptoms Respiratory: No Symptoms, No Cough, No Dyspnea Cardiac: No Symptoms, No Chest Pain, No Edema, No Syncope Abdominal/Gastrointestinal: No Symptoms, No Abdominal Pain, No Nausea, No Vomiting, No Diarrhea Genitourinary Symptoms: No Symptoms, No Dysuria Musculoskeletal: No Symptoms, No Back Pain, No Neck Pain Skin: No Symptoms, No Rash Neurological: No Symptoms, No Dizziness, No Focal Weakness, No Sensory Changes Psychological: No Symptoms Endocrine: No Symptoms Hematologic/Lymphatic: No Symptoms Immunological/Allergic: No Symptoms All Other Systems: Reviewed and Negative - Past Medical History Pertinent Past Medical History: Yes Neurological History: No Pertinent History ENT History: No Pertinent History Cardiac History: High Cholesterol, Hypertension Respiratory History: Asthma Endocrine Medical History: Hypothyroidism Musculoskeletal History: No Pertinent History GI Medical History: Crohns Disease, GERD History: No Pertinent History Psycho-Social History: No Pertinent History Female Reproductive Disorders: Breast Cancer Other Medical History: EYE SURGERIES, BORN A PREMIE., breast cancer in R breast, invasive carcimona - Past Surgical History Past Surgical History: Yes Neuro Surgical History: No Pertinent History Cardiac: No Pertinent History Respiratory: No Pertinent History Gastrointestinal: No Pertinent History Genitourinary: No Pertinent History Musculoskeletal: No Pertinent History Female Surgical History: Other Other Surgical History: tubal ablasion, right eye detached retina - Female History Hx Last Menstrual Period: ablation Hx Now: No - Social History Smoking Status: Never smoker Exposure to second hand smoke: Yes Drug Use: none Patient Lives Alone: No - Social Determinants of Health Will the patient participate in the screening: Declined to provide - Nursing Vital Signs Nursing Vital Signs: Initial Vital Signs Temperature 98.2 F 03/13/24 21:20 Pulse Rate 94 H 03/13/24 21:20 Respiratory Rate 18 03/13/24 21:20 Blood Pressure 161/104 03/13/24 21:20 O2 Sat by Pulse Oximetry 100 03/13/24 21:20 Pain Scale Pain Intensity 7 - Physical Exam General Appearance: no apparent distress, alert Eye Exam: PERRL/EOMI, eyes nml inspection Ears, Nose, Throat Exam: normal ENT inspection, TMs normal, pharynx normal, moist mucous membranes Neck Exam: normal inspection, full range of motion Respiratory Exam: normal breath sounds, lungs clear, airway intact, No respiratory distress Cardiovascular Exam: regular rate/rhythm, normal heart sounds, normal peripheral pulses Gastrointestinal/Abdomen Exam: soft, normal bowel sounds, No tenderness, No mass Back Exam: normal inspection, normal range of motion, No CVA tenderness, No vertebral tenderness Extremity Exam: normal inspection, normal range of motion, pelvis stable Neurologic Exam: alert, oriented x 3, cooperative, normal mood/affect, nml cerebellar function, nml station & gait, sensation nml, No motor deficits Skin Exam: normal color, warm, dry, No rash Lymphatic Exam: No adenopathy SpO2 Interpretation: normal SpO2: 100 O2 Delivery: Room Air - Course Nursing assessment & vital signs reviewed: Yes Ordered Tests: Active Orders 24 hr Category Date Time Status CBC W DIFF Stat Lab 03/13/24 22:28 Completed CMP Stat Lab 03/13/24 22:28 Completed LIPASE Stat Lab 03/13/24 22:28 Completed UA W/RFX UR CULTURE Stat Lab 03/13/24 21:46 Completed Medication Summary Discontinued Medications Generic Name Dose Route Start Last Admin Trade Name Freq PRN Reason Stop Dose Admin Ondansetron HCl 4 mg 03/13/24 21:45 03/13/24 21:49 Zofran 4 Mg/Udtablet Orally Disintegrating PO 03/13/24 21:46 4 mg STAT ONE Administration Ondansetron HCl Confirm 03/13/24 21:48 Zofran 4 Mg/Udtablet Orally Disintegrating Administered 03/13/24 21:49 Dose 4 mg .ROUTE .STK-MED ONE Ondansetron HCl Confirm 03/13/24 21:52 Zofran 4 Mg/Udtablet Orally Disintegrating Administered 03/13/24 21:53 Dose 4 mg .ROUTE .STK-MED ONE Lab/Rad Data: Laboratory Result Diagrams 03/13/24 22:28 03/13/24 22:28 Laboratory Results 03/13/24 03/13/24 03/13/24 Range/Units 22:28 22:28 22:00 WBC 7.9 (3.98-10.04) x10^3/uL RBC 4.50 (3.93-5.22) x10^6/uL Hgb 11.8 (11.2-15.7) g/dL Hct 35.6 (34.1-44.9) % MCV 79.1 L (79.4-94.8) fL MCH 26.2 (25.6-32.2) pg MCHC 33.1 (32.2-35.5) g/dL RDW 16.4 H (11.7-14.4) % Plt Count 297 (182-369) x10^3/uL MPV 9.3 L (9.4-12.3) fL Gran % 89.9 H (34.0-71.1) % Immature Gran % (Auto) 0.5 H (0.001-0.429) % Nucleat RBC Rel Count 0.0 (0.00-0.2) % Eos # (Auto) 0.03 L (0.04-0.36) x10^3/uL Immature Gran # (Auto) 0.04 H (0.001-0.031) x10^3u/L Absolute Lymphs (auto) 0.44 L (1.18-3.74) x10^3/uL Absolute Monos (auto) 0.25 (0.24-0.86) x10^3/uL Absolute Nucleated RBC 0.00 (0.00-0.012) x10^3u/L Lymphocytes % 5.6 L (19.3-51.7) % Monocytes % 3.2 L (4.7-12.5) % Eosinophils % 0.4 L (0.7-5.8) % Basophils % 0.4 (0.1-1.2) % Absolute Granulocytes 7.07 H (1.56-6.13) x10^3/uL Basophils # 0.03 (0.01-0.08) x10^3/uL Sodium 137 (135-145) mmol/L Potassium 4.1 (3.5-5.1) mmol/L Chloride 101 (98-107) mmol/L Carbon Dioxide 28 (22-30) mmol/L Anion Gap 12.2 (5-15) MEQ/L BUN 8 (7-17) mg/dL Creatinine 0.87 (0.52-1.04) mg/dL Estimated GFR 83.2 ML/MIN Glucose 158 H (74-106) mg/dL Calcium 9.7 (8.4-10.2) mg/dL Total Bilirubin 0.60 (0.2-1.3) mg/dL AST 26 (14-36) U/L ALT 22 (0-35) U/L Alkaline Phosphatase 89 (38-126) U/L Serum Total Protein 7.2 (6.3-8.2) g/dL Albumin 4.5 (3.5-5.0) g/dL Lipase 38 (23-300) U/L Urine Color (Yellow) Urine Appearance (Clear) Urine pH (4.6-8.0) Ur Specific Ignacio (1.005-1.030) Urine Protein (Negative) Urine Glucose (UA) (Negative) mg/dL Urine Ketones (Negative) Urine Blood (Negative) Urine Nitrite (Negative) Urine Bilirubin (Negative) Urine Urobilinogen (0.2) mg/dL Ur Leukocyte Esterase (Negative) U Hyaline Cast (Auto) (0-2) /LPF Urine Microscopic RBC (0-5) /HPF Urine Microscopic WBC (0-5) /HPF Ur Epithelial Cells (None Seen) /HPF Urine Bacteria (None Seen) /HPF Urine Culture Reflexed (NO) Influenza Type A Ag NEGATIVE (NEGATIVE) Influenza Type B Ag NEGATIVE (NEGATIVE) RSV (PCR) NEGATIVE (NEGATIVE) SARS-CoV-2 (PCR) NEGATIVE (NEGATIVE) 03/13/24 Range/Units 21:46 WBC (3.98-10.04) x10^3/uL RBC (3.93-5.22) x10^6/uL Hgb (11.2-15.7) g/dL Hct (34.1-44.9) % MCV (79.4-94.8) fL MCH (25.6-32.2) pg MCHC (32.2-35.5) g/dL RDW (11.7-14.4) % Plt Count (182-369) x10^3/uL MPV (9.4-12.3) fL Gran % (34.0-71.1) % Immature Gran % (Auto) (0.001-0.429) % Nucleat RBC Rel Count (0.00-0.2) % Eos # (Auto) (0.04-0.36) x10^3/uL Immature Gran # (Auto) (0.001-0.031) x10^3u/L Absolute Lymphs (auto) (1.18-3.74) x10^3/uL Absolute Monos (auto) (0.24-0.86) x10^3/uL Absolute Nucleated RBC (0.00-0.012) x10^3u/L Lymphocytes % (19.3-51.7) % Monocytes % (4.7-12.5) % Eosinophils % (0.7-5.8) % Basophils % (0.1-1.2) % Absolute Granulocytes (1.56-6.13) x10^3/uL Basophils # (0.01-0.08) x10^3/uL Sodium (135-145) mmol/L Potassium (3.5-5.1) mmol/L Chloride (98-107) mmol/L Carbon Dioxide (22-30) mmol/L Anion Gap (5-15) MEQ/L BUN (7-17) mg/dL Creatinine (0.52-1.04) mg/dL Estimated GFR ML/MIN Glucose (74-106) mg/dL Calcium (8.4-10.2) mg/dL Total Bilirubin (0.2-1.3) mg/dL AST (14-36) U/L ALT (0-35) U/L Alkaline Phosphatase (38-126) U/L Serum Total Protein (6.3-8.2) g/dL Albumin (3.5-5.0) g/dL Lipase (23-300) U/L Urine Color Yellow (Yellow) Urine Appearance Clear (Clear) Urine pH 7.0 (4.6-8.0) Ur Specific Ignacio >=1.030 A (1.005-1.030) Urine Protein 30 (Negative) Urine Glucose (UA) Negative (Negative) mg/dL Urine Ketones Trace A (Negative) Urine Blood NHT (Negative) Urine Nitrite Negative (Negative) Urine Bilirubin Negative (Negative) Urine Urobilinogen 1.0 A (0.2) mg/dL Ur Leukocyte Esterase Negative (Negative) U Hyaline Cast (Auto) NONE SEEN (0-2) /LPF Urine Microscopic RBC 6-10 A (0-5) /HPF Urine Microscopic WBC 6-10 A (0-5) /HPF Ur Epithelial Cells Rare (None Seen) /HPF Urine Bacteria None Seen (None Seen) /HPF Urine Culture Reflexed NO (NO) Influenza Type A Ag (NEGATIVE) Influenza Type B Ag (NEGATIVE) RSV (PCR) (NEGATIVE) SARS-CoV-2 (PCR) (NEGATIVE) - Progress Progress: improved Progress Note: 48-year-old female presents to emergency department for evaluation of nausea vomiting and abdominal pain. Laboratory workup essentially nonremarkable. Urinalysis significant for urinary tract infection. Patient did not want antibiotic therapy this evening. However she agreed to roller picker her antibiotic medication from the pharmacy in the morning and initiate therapy to treat her urinary tract infection. Patient tolerated p.o. No nausea no vomiting. No active abdominal pain. Patient declined a CT abdomen pelvis. Patient stated that she did not want a second CT scan as she already had 1 today at [facility]. We contacted [facility] for a copy of the report. But the CAT scan had not yet been read. [facility] attempted to have the CT scan read with a subsequent copy of the report forwarded to us. However we have yet to receive the report. Patient stated that she no longer wanted to wait for the report. Patient reports that she felt well and wanted to go home. A prescription for Zofran forwarded to patient's pharmacy as well. Patient agrees to follow-up with her primary care doctor within 48 hours for reevaluation. She voices no other complaints or concerns at this time. Portions of this note were created with voice recognition technology. There may be grammatical, spelling, punctuation or sound alike errors Complexity of problem addressed is moderate acute complicated. No critical care time. Complexity of data reviewed and analyzed is moderate. Test ordered chest reviewed results analyzed and correlated clinically with history and physical exam. Risk of complication and or risk of morbidity/mortality of patient management is moderate. A prescription for Zofran and Macrobid forwarded to patient's pharmacy. Vital stable. Time spent to discharge patient is approximately 15 minutes. Plan of care established for shared decision making. No social determinants of health present to impede follow-up. Portions of this note were created with voice recognition technology. There may be grammatical, spelling, punctuation or sound alike errors 03/13/24 23:31 Counseled pt/family regarding: lab results, diagnosis, need for follow-up - Departure Departure Disposition: Home Clinical Impression: Nausea & vomiting, Abdominal pain, UTI (urinary tract infection) Condition: Stable Critical Care Time: No Referrals: YANELY RAJAN MD [Primary Care Provider] - Follow up/PCP as directed Additional Instructions: Discharge/Care Plan CASTRO CONWAY was seen on 03/13/24 in the Emergency Room. The patient was counseled regarding Diagnosis,Lab results, Imaging studies, need for follow up and when to return to the Emergency Room. Prescriptions given: Discharge Note I have spoken with the patient and/or caregivers. I have explained the patient's condition, diagnosis and treatment plan based on the information available to me at this time. I have answered the patient's and/or caregiver's questions and addressed any concerns. The patient and/or caregivers have as good understanding of the patient's diagnosis, condition and treatment plan as can be expected at this point. The vital signs have been stable. The patient's condition is stable and appropriate for discharge from the emergency department. The patient will pursue further outpatient evaluation with the primary care physician or other designated or consulting physician as outlined in the lisandra gordillo instructions. The patient and/or caregivers are agreeable to this plan of care and follow-up instructions have been explained in detail. The patient and/or caregivers have received these instruction. The patient/and or caregivers are aware that any significant change in condition or worsening of symptoms should prompt an immediate return to this or the closest emergency department or call 911. Prescriptions: Ondansetron ODT 4 MG [Zofran Odt 4 mg] 4 mg PO Q6H PRN PRN #10 tablet PRN Reason: Vomiting Nitrofurantoin Macro 100 mg [Macrobid 100MG Capsule] 100 mg PO BID 7 Days #14 cap
[2024-03-13 22:01] LABS: Bacteria None Seen /HPF (None Seen); Epithelial Cells Rare /HPF (None Seen); Hyaline Casts NONE SEEN /LPF (0-2)
[2024-03-13 22:31] LABS: Absolute Neutrophil Ct (ANC) 7.07 x10^3/uL (1.56-6.13); BASOPHIL % 0.4 % (0.1-1.2); Basophil (Absolute #) 0.03 x10^3/uL (0.01-0.08); Eosinophil % 0.4 % (0.7-5.8); Eosinophil (Absolute #) 0.03 x10^3/uL (0.04-0.36); Hematocrit 35.6 % (34.1-44.9); Hemoglobin 11.8 g/dL (11.2-15.7); IMMATURE GRAN # 0.04 x10^3u/L (0.001-0.031); IMMATURE GRAN % 0.5 % (0.001-0.429); Lymphocyte (Absolute #) 0.44 x10^3/uL (1.18-3.74); Lymphocytes % 5.6 % (19.3-51.7); Mean Cell Volume 79.1 fL (79.4-94.8); Mean Corpuscular Hemoglobin 26.2 pg (25.6-32.2); Mean Corpuscular Hgb Concent. 33.1 g/dL (32.2-35.5); Mean Platelet Volume 9.3 fL (9.4-12.3); Monocyte (Absolute #) 0.25 x10^3/uL (0.24-0.86); Monocytes % 3.2 % (4.7-12.5); Neutrophil % 89.9 % (34.0-71.1); Platelet Count 297 x10^3/uL (182-369); Red Cell Distribution Width 16.4 % (11.7-14.4); White Blood Count 7.9 x10^3/uL (3.98-10.04)
[2024-03-13 22:45] LABS: INFLUENZA A NEGATIVE (NEGATIVE); INFLUENZA B NEGATIVE (NEGATIVE); RESPIRATORY SYNCTIAL VIRUS NEGATIVE (NEGATIVE); SARS-CoV-2 Xpert Express NEGATIVE (NEGATIVE)
[2024-03-13 22:48] LABS: ALBUMIN 4.5 g/dL (3.5-5.0); ANION GAP 12.2 MEQ/L (5-15); BILIRUBIN,TOTAL 0.6 mg/dL (0.2-1.3); Calcium 9.7 mg/dL (8.4-10.2); Creatinine 1 0.87 mg/dL (0.52-1.04); EST GLOMERULAR FILTRATION RATE 83.2 ML/MIN; Potassium 4.1 mmol/L (3.5-5.1); Total Protein 7.2 g/dL (6.3-8.2)
[2024-03-13 23:03] VITALS: BP 141/94; PULSE 97
[2024-03-13 23:30] VITALS: O2SAT 100
== END 2024-03-13 23:37 | disposition home or self-care (01) ==
LOC: ED 20:53
DX: N39.0 Urinary tract infection, site not specified (principal); R11.2 Nausea with vomiting, unspecified; R10.84 Generalized abdominal pain; E78.5 Hyperlipidemia, unspecified; I10 Essential (primary) hypertension; Z79.899 Other long term (current) drug therapy
CPT/HCPCS: 0241U; 36415; 80053; 81001; 83690; 85025; 99283; Q0162